=== PATIENT | female | born 1970 | race Caucasian/White ===

== ENCOUNTER 2025-03-13 11:54 | Outpatient (CLI) | payer OTHER, SELFPAY | END 2025-03-13 11:55 | disposition home or self-care (01) | LOC: NFLDREF 03-16 08:37 | PROVIDERS: PCP Nurse Practitioner Family; Referring Provider Nurse Practitioner Family; Visit Provider Nurse Practitioner Family | DX: E03.9 Hypothyroidism, unspecified (principal); E78.2 Mixed hyperlipidemia; E66.3 Overweight; Z13.6 Encounter for screening for cardiovascular disorders | CPT/HCPCS: 80061; 84443 ==

== ENCOUNTER 2025-06-22 10:52 | Outpatient (CLI) | payer OTHER, SELFPAY | END 2025-06-22 10:53 | disposition home or self-care (01) | LOC: NFLDREF 06-25 15:46 | PROVIDERS: PCP Nurse Practitioner Family; Referring Provider Nurse Practitioner Family; Visit Provider Family Medicine | DX: R35.0 Frequency of micturition (principal) | CPT/HCPCS: 87086 ==